=== PATIENT | male | born 1960 | race Caucasian/White ===

== ENCOUNTER 2020-04-26 13:32 | Emergency (ER) | payer BC, SELFPAY ==
[2020-04-26 13:45] VITALS: BP 137/93; PULSE 87; RESP 20; TEMP 37; O2SAT 97
--- NOTE | 2020-04-26 13:53 | ED.NECK ---
HPI - Neck Pain/Injury General Chief Complaint: Unspecified Stated Complaint: R hip pain, pain in L arm and neck Time Seen by Provider: 04/26/20 13:35 Source: patient and RN notes reviewed Mode of arrival: ambulatory Limitations: no limitations History of Present Illness HPI Narrative: patient states that he takes 05/03/2025 [place] 1 p.o. b.i.d. on a regular basis. He sees a pain management clinic. He has been slowly weaned down from 4 tabs per day. He had a prescription supposedly called in for him on Tuesday but it was not at the pharmacy. He has not been able to work for the last 2 days due to the pain. He just needs a few medications to get him through till Tuesday. MD complaint: neck pain and other ( Chronic hip pain and left arm pain) Onset (ago): day(s) (2) Related Data Home Medications Medication Instructions Recorded Confirmed alprazolam 0.5 mg PO BID 04/26/20 04/26/20 atorvastatin 80 mg PO DAILY 04/26/20 04/26/20 hydrocodone-acetaminophen 1 tablet PO BID 04/26/20 04/26/20 metoprolol succinate [Toprol XL] 50 mg PO DAILY 04/26/20 04/26/20 Allergies Allergy/AdvReac Type Severity Reaction Status Date / Time cephalexin Allergy Unknown Verified 01/02/19 11:51 Review of Systems Review of Systems: All systems reviewed & are unremarkable except as noted in HPI and below PMFSH Past Medical History Medical History (Updated 04/26/20 @ 14:16 by Marcelino Smith MD) Anxiety Hyperlipidemia Surgical History Surgical History (Updated 04/26/20 @ 14:11 by Marcelino Smith MD) H/O neck surgery Family History Family History Other Diabetes mellitus Family history of arthritis Family history of malignant neoplasm Hypertension Social History Social History Smoking status: Never smoker Exam Const: General: healthy appearing, no acute distress and alert Nutritional Appearance: well nourished Orientation/consciousness: patient oriented x3 HENMT: Head: normal to inspection Ears: external ears normal Eyes: Conjunctivae: conjunctivae normal Pupils: Equal, round and reactive pupils present EOM: EOMs intact bilaterally Neck: Neck: normal visual inspection Resp: Effort & Inspection: normal respiratory effort Auscultation: clear to auscultation bilaterally Cardio: Rate: regular rate Rhythm: regular rhythm GI: GI Palp: Yes Soft to palpation Auscultation: normal bowel sounds Back/Spine/Pelvis: Cervical Spine: Cervical spine tenderness (left neck) Skin: General skin exam: normal color Rashes: no rashes Neuro: General: patient oriented x3 and moves all extremities Extrem: General: normal to inspection and no clubbing, cyanosis or edema Left upper extremity: shoulder/upper arm tenderness of the proximal humerus Psych: Appearance: grossly normal and well kempt Mental Status: mental status grossly normal Affect: normal affect Attitude: cooperative Thought content: Yes Normal thought content present Course Course Emergency Course: I told the patient because he has seen a pain clinic I can only give him enough medication for up to 3 days. I did check the [place] [employer] and he is consistent with his medications he only sees 1 doctor and he is getting them in a timely manner. Vital Signs Vital signs: Vital Signs Temperature 37.0 C 04/26/20 13:45 Pulse Rate 87 04/26/20 13:45 Respiratory Rate 04/26/20 13:45 Blood Pressure 137/93 H 04/26/20 13:45 Pulse Oximetry 97 04/26/20 13:45 Temperature 37.0 C 04/26/20 13:45 Pulse Rate 87 04/26/20 13:45 Respiratory Rate 04/26/20 13:45 Blood Pressure 137/93 H 04/26/20 13:45 Pulse Oximetry 97 04/26/20 13:45 Discharge Plan Discharge Clinical Impression: Chronic neck pain Patient Disposition: Home, Self-Care Condition: Stable Instructions: Chronic Neck Pain (DC) Prescriptions: New hydrocodone-acetamin
== END 2020-04-26 14:21 | disposition home or self-care (01) ==
PROVIDERS: Emergency Provider Emergency Medicine; PCP Family Medicine
DX: M54.2 Cervicalgia (principal)
CPT/HCPCS: 99281; 99283

== ENCOUNTER 2020-09-03 10:19 | Outpatient (CLI) | payer BC, SELFPAY ==
--- NOTE | ~2020-09-03 | CT_ITS ---
EXAMINATION:CT lung screening DATE: 09/03/2020 10:38 INDICATION: Personal history of tobacco dependence. Current smoker with 30 pack year history. TECHNIQUE: Computed tomography (CT) of the chest was performed without intravenous contrast. Automate d exposure control and iterative reconstruction technique were employed. The dose-length product (DLP ) was 211.06 mGy-cm. COMPARISON: Chest CT 11/01/18 FINDINGS: There is mild emphysema. There are innumerable chronic 1 mm centrilobular nodules in the up per lungs, likely respiratory bronchiolitis. No pleural effusion. The heart size is normal. There are coronary artery calcifications. No pericardial effusion. There are old healed right rib fractures. T here is mild thoracic spondylosis. IMPRESSION: 1. Lung-RADS category 2: Benign appearance or behavior. Continue annual screening with noncontrast lo w-dose chest CT in 12 months. Reviewed, dictated and finalized at location [facility]. [employer] IMPRESSION: 1. Lung-RADS category 2: Benign appearance or behavior. Continue annual screeni ng with noncontrast low-dose chest CT in 12 months.
== END 2020-09-03 10:20 | disposition home or self-care (01) ==
LOC: CHSIMG 10:20
PROVIDERS: PCP Family Medicine; Visit Provider Family Medicine
DX: Z12.2 Encounter for screening for malignant neoplasm of respiratory organs (principal); Z87.891 Personal history of nicotine dependence
CPT/HCPCS: 71271

== ENCOUNTER 2020-09-10 12:29 | Outpatient (CLI) | payer BC, SELFPAY ==
--- NOTE | ~2020-09-10 | XR_ITS ---
XR lg joint inject/asp w image DATE: 09/10/2020 14:51 INDICATION: Right hip pain TECHNIQUE: The purpose of the procedure, technique and potential complications were discussed with th e patient. The patient verbalized understanding and gave oral and written consent. The skin over the anterolateral aspect of the proximal right thigh was prepared with sterile Betadine . Local anesthetic was administered to the skin and underlying subcutaneous tissues. A 20-gauge spinal needle was introduced into the right hip joint space using fluoroscopy for guidance . Contrast material injection confirmed intra-articular position of the needle tip. Subsequently, 80 mg of Depo-Medrol and 2 cc of 0.5% Marcaine was injected into the right hip joint space. Patient was very cooperative and tolerated the procedure without complaint or apparent complication. IMPRESSION: Fluoroscopically guided intra-articular injection of 80 mg of Depo-Medrol and 2 cc of 0.5 % Marcaine Reviewed, dictated and finalized at [facility]. Reviewed, dictated and finalized at location [facility]. [employer] IMPRESSION: Fluoroscopically guided intra-articular injection of 80 mg of Depo- Medrol and 2 cc of 0.5% Marcaine
== END 2020-09-10 12:30 | disposition home or self-care (01) ==
LOC: CHSIMG 12:30
PROVIDERS: PCP Family Medicine; Visit Provider Orthopaedic Surgery
DX: M16.11 Unilateral primary osteoarthritis, right hip (principal)
CPT/HCPCS: 20610; 77002; J1030; Q9965

== ENCOUNTER 2021-12-29 14:50 | Emergency (ER) | payer BC, SELFPAY ==
--- NOTE | ~2021-12-29 | CT_ITS ---
EXAMINATION: CT lumbar spine wo con DATE: 12/29/2021 15:31 INDICATION: Left-sided low back pain. TECHNIQUE: Computed tomography (CT) of the lumbar spine was performed without intravenous contrast. A utomated exposure control and iterative reconstruction technique were employed. The dose-length produ ct was 512.90 mGy-cm. COMPARISON: None FINDINGS: There is 6 degrees levocurvature of lumbar spine. Vertebral body heights are normal. There is mildly decreased disc height from L2-L3 through L4-L5. The following disc levels are specifically discussed: L1-L2: The disc does not extend beyond the endplate margin. There is mild bilateral facet joint osteo arthritis. There is no neural foraminal stenosis. There is no central canal stenosis. L2-L3: The disc is bulging. There is mild right and severe left facet joint osteoarthritis. There is mild bilateral neural foraminal stenosis. There is mild central canal stenosis. L3-L4: The disc is bulging. There is moderate right and severe left facet joint osteoarthritis. There is moderate bilateral neural foraminal stenosis. There is mild central canal stenosis. L4-L5: The disc is bulging. There is moderate bilateral facet joint osteoarthritis. There is moderate bilateral neural foraminal stenosis. There is mild central canal stenosis. L5-S1: The disc is bulging. There is moderate right and severe left facet joint osteoarthritis. There is mild bilateral neural foraminal stenosis. There is mild central canal stenosis. IMPRESSION: 1. Moderate lumbar spondylosis. Reviewed, dictated and finalized at location A.
[2021-12-29 14:55] VITALS: BP 124/81; PULSE 81; RESP 18; TEMP 36.9; O2SAT 97
--- NOTE | 2021-12-29 15:04 | ED.BACK ---
HPI - Back Pain/Injury General Chief Complaint: Back Pain/Injury Stated Complaint: back pain Time Seen by Provider: 12/29/21 15:04 Source: patient History of Present Illness HPI Narrative: 61-year-old male with chronic hip pain, chronic low back pain on [place] and under pain management therapy presents to the ER with -- left lower back pain radiating to his hip/ thigh for past 4 days. no sensory motor loss. No bladder or bowel involvement. No fever. no recent trauma MD elicited complaint: back pain Pertinent past history: prior back pain Onset (ago): day(s) ( started 4 days ago) Timing: constant Severity: moderate Similar Symptoms Previously: No Quality: aching Location: lumbar spine Radiation: other ( radiates to his left thigh) Exacerbating factors: movement Relieving factors: immobilization Associated symptoms: denies other symptoms and loss of sensation in lower extremities ( Chronic paresthesias of right lower extremity) Treatments prior to arrival: prescription analgesics Related Data Home Medications Medication Instructions Recorded Confirmed atorvastatin 80 mg tablet 80 mg PO DAILY 04/26/20 12/29/21 metoprolol succinate 50 mg 50 mg PO DAILY 04/26/20 12/29/21 tablet,extended release 24 hr (Toprol XL) lisinopril 20 1 tablet PO DAILY 10/13/20 12/29/21 mg-hydrochlorothiazide 12.5 mg tablet Allergies Allergy/AdvReac Type Severity Reaction Status Date / Time cephalexin Allergy Unknown Hives Verified 12/29/21 15:02 Review of Systems Review of Systems: All systems reviewed & are unremarkable except as noted in HPI and below Constitutional: Constitutional: Reports as per HPI and Reports no additional constitutional complaints Eyes: Eyes: Reports as per HPI and Reports no additional eye complaints ENT: Reports system reviewed and no additional complaints, except as documented and Reports as per HPI Cardiovascular: Cardiovascular: Reports as per HPI and Reports no additional cardiovascular complaints Respiratory: Respiratory: Reports chest congestion and Reports cough Gastrointestinal: Gastrointestinal: Reports as per HPI and Reports no additional gastrointestinal complaints Genitourinary: Genitourinary: Reports no additional male genitourinary complaints and Reports as per HPI Musculoskeletal: Comments: chronic hip pain for which he takes [place] Integumentary/Breasts: Skin/Breast: Reports system reviewed and no additional complaints, except as docu and Reports as per HPI Neurologic: Reports system reviewed and no additional complaints, except as documented and Reports as per HPI Psychiatric: Psychiatric: Reports no additional psychiatric complaints and Reports as per HPI Endocrine: Endocrine: Reports no additional endocrine complaints and Reports as per HPI Hematologic/Lymphatic: Hematologic/Lymphatic: Reports no additional hematologic/lymphatic complaints and Reports as per HPI Allergic/Immunologic: Allergic/Immunologic: Reports no additional allergic/immunologic complaints and Reports as per HPI [facility] Past Medical History Medical History (Updated 12/29/21 @ 15:54 by Gurvinder Chowdhury MD) Anxiety Asthma Chronic pain COPD (chronic obstructive pulmonary disease) Coronary artery disease Hyperlipidemia Osteoarthritis Surgical History Surgical History H/O neck surgery History of appendectomy History of colonoscopy History of surgery on wrist Family History Family History Other Diabetes mellitus Family history of arthritis Family history of malignant neoplasm Hypertension Social History Social History Smoking packs per day: 0.5 Smoking cigarettes per day: 10.0 Years smoked: 30 Smoking pack-years: 15.00 Smoking status: Current every day smoker Alcohol intake: current Exam Const: G
[2021-12-29 15:43] LABS: Add Urine Microscopic? YES; Appearance Urine Clear (Clear); Bilirubin Urine Negative (Negative); Blood Urine 2+ (Negative); Color Urine Light Yellow (Yellow); Glucose Urine UA Negative (Negative); Ketones Urine Negative (Negative); Leukocyte Esterase Ur Negative (Negative); Nitrate Urine Negative (Negative); Protein Urine Negative (Negative); Urobilinogen Urine 0.2 mg/dL (0.2-1.0); pH Urine 5.5 (5.0-8.0)
[2021-12-29 15:58] LABS: Bacteria Urine Trace /hpf; Squamous Epithelial Cell Urine Rare /hpf (Few); WBC Urine None seen /hpf (0-3)
[2021-12-29 15:59] LABS: Mucus Urine Few /lpf
[2021-12-29] MEDS: KETOROLAC 30 MG/ML VIAL (*BKC) IM (16:06)
[2021-12-29 16:10] VITALS: BP 130/66; PULSE 74; RESP 16; TEMP 36.2; O2SAT 97
== END 2021-12-29 16:13 | disposition home or self-care (01) ==
PROVIDERS: Emergency Provider Internal Medicine Critical Care Medicine; PCP Family Medicine
DX: M47.816 Spondylosis without myelopathy or radiculopathy, lumbar region (principal)
CPT/HCPCS: 72131; 81001; 96372; 99284; J1885

== ENCOUNTER 2022-12-10 13:09 | Outpatient (CLI) | payer BC, SELFPAY ==
--- NOTE | ~2022-12-10 | CT_ITS ---
CT Scan of the Chest without Contrast: Clinical Indication: Lung cancer screening, personal history of nicotine dependence Technique: Contiguous sections were acquired throughout the chest without intravenous contrast. Dose reduction technique was used on this scan by utilizing automated exposure control and iterative recon struction technique. The dose-length product (DLP) was 153.45 mGy-cm. COMPARISON: 09/03/2020 Findings: There is no evidence of any significant mediastinal, hilar or axillary lymphadenopathy. Coronary latanya ry calcium cages are present. There is no evidence of pleural or pericardial effusion. The lungs are clear. No pulmonary nodules or infiltrates are noted. Images through the upper abdomen reveal no abnormalities. Impression: Lung RADS 1: Negative. 12 month follow-up screening CT advised. Reviewed, dictated and finalized at location . Impression: Lung RADS 1: Negative. 12 month follow-up screening CT advised.
== END 2022-12-10 13:10 | disposition home or self-care (01) ==
LOC: CHSIMG 13:13
PROVIDERS: PCP Family Medicine; Visit Provider Family Medicine
DX: Z12.2 Encounter for screening for malignant neoplasm of respiratory organs (principal); Z87.891 Personal history of nicotine dependence
CPT/HCPCS: 71271

== ENCOUNTER 2024-09-17 15:54 | Emergency (ER) | payer MEDICARE, SELFPAY ==
[2024-09-17 15:54] VITALS: BP 138/72; PULSE 84; RESP 18; TEMP 36.8; O2SAT 94
--- NOTE | 2024-09-17 17:10 | ED.EAR ---
HPI - Ear Problem General Chief complaint: Ear Stated complaint: ear pain Time Seen by Provider: 09/17/24 16:20 Source: patient Mode of arrival: ambulatory Limitations: no limitations History of Present Illness HPI Narrative: Patient is 64-year-old male with significant past medical history presents today with ear problems. Patient has ear pain is bilateral ears and says he thinks he is also wax buildup in both his ears as well. They both hurt equally. He says he has had this problem before is wax buildup. He says he tries not to the Q-tips but uses tip of his finger. MD Complaint: ear pain Location: bilateral Duration: constant Severity: mild Relieving factors: nothing Exacerbating factors: nothing Discharge from ear: Reports yes - purulent Associated symptoms ear: decreased hearing Treatment prior to arrival: eardrops Related Data Home Medications ?Medication ?Instructions ?Recorded ?Confirmed ?Last Taken ?Type atorvastatin 80 mg tablet 80 mg PO DAILY 04/26/20 12/29/21 Unknown History metoprolol succinate 50 mg 50 mg PO DAILY 04/26/20 12/29/21 Unknown History tablet,extended release 24 hr (Toprol XL) lisinopril 20 1 tablet PO DAILY 10/13/20 12/29/21 Unknown History mg-hydrochlorothiazide 12.5 mg tablet Allergies Allergy/AdvReac Type Severity Reaction Status Date / Time cephalexin Allergy Unknown Hives Verified 09/17/24 17:09 Review of Systems Review of Systems: All systems reviewed & are unremarkable except as noted in HPI and below Constitutional: Constitutional: Reports as per HPI Eyes: Eyes: Reports no additional eye complaints ENT: Reports as per HPI Comments: ear impacted cerumen Cardiovascular: Cardiovascular: Reports no additional cardiovascular complaints Respiratory: Respiratory: Reports no additional respiratory complaints Gastrointestinal: Gastrointestinal: Reports no additional gastrointestinal complaints Genitourinary: Genitourinary: Reports no additional male genitourinary complaints Musculoskeletal: Musculoskeletal: Reports no additional musculoskeletal complaints Integumentary/Breasts: Skin/Breast: Reports system reviewed and no additional complaints, except as docu Neurologic: Reports system reviewed and no additional complaints, except as documented Psychiatric: Psychiatric: Reports no additional psychiatric complaints Endocrine: Endocrine: Reports no additional endocrine complaints Hematologic/Lymphatic: Hematologic/Lymphatic: Reports no additional hematologic/lymphatic complaints Allergic/Immunologic: Allergic/Immunologic: Reports no additional allergic/immunologic complaints [facility] Past Medical History Medical History Osteoarthritis Chronic pain Asthma COPD (chronic obstructive pulmonary disease) Coronary artery disease Anxiety Hyperlipidemia Surgical History Surgical History History of surgery on wrist History of appendectomy History of colonoscopy H/O neck surgery Family History Family History Other Diabetes mellitus Family history of arthritis Family history of malignant neoplasm Hypertension Social History Social History Smoking packs per day: 0.5 Smoking cigarettes per day: 10.0 Years smoked: 30 Smoking pack-years: 15.00 Smoking status: Current every day smoker Alcohol intake: current Exam Const: General: healthy appearing Nutritional Appearance: well nourished Orientation/consciousness: patient oriented x3 HENMT: Head: normal to inspection Ears: external ears normal, Abnormal EAC present and TM abnormal Face/Nose/Sinus: Normal external nose present Face and sinus: normal facial exam Mouth: Yes Normal oral and palatal mucosa present Eyes: Conjunctivae: conjunctivae normal Pupils: Equal, round and reactive pupils present EOM: EOMs intact bilaterally Neck: Neck: normal visual inspection Chest: Chest palpation & inspection: normal inspection of the chest Resp: Effort & Inspection: normal respiratory effort Auscultation: clear to auscultation bilaterally Cardio: Rate: regular rate Rhythm: regular rhythm GI: GI Palp: Yes Soft to palpation Back/Spine/Pelvis: Back: no CVA tenderness Skin: General skin exam: normal color Rashes: no rashes Wounds: no wounds Neuro: General: patient oriented x3 Cranial nerves: Yes Nystagmus not present Speech: normal speech Extrem: General: normal to inspection Psych: Mental Status: mental status grossly normal Affect: normal affect Attitude: cooperative Course Vital Signs Vital signs: Vital Signs Temperature 98.3 F 09/17/24 15:54 Pulse Rate 84 09/17/24 15:54 Respiratory Rate 18 09/17/24 15:54 Blood Pressure 138/72 09/17/24 15:54 Pulse Oximetry 94 09/17/24 15:54 Oxygen Delivery Room Air 09/17/24 15:54 Temperature 98.3 F 09/17/24 15:54 Pulse Rate 84 09/17/24 15:54 Respiratory Rate 18 09/17/24 15:54 Blood Pressure 138/72 09/17/24 15:54 Pulse Oximetry 94 09/17/24 15:54 Oxygen Delivery Room Air 09/17/24 15:54 Medical Decision Making MDM Narrative Medical decision making narrative: patient has impacted cerumen on both ears they are completely impacted except for the right ear I can see enough to see that he does have a right ear infection. Will order an ear irrigation to both ears. After seeing a irrigation to both ears the left ear also has an ear infection as well. For Ciprodex for both ears and Augmentin for the ear infections. Differential Diagnosis Differential Diagnosis: Bilateral otitis media Medical Records Medical records reviewed: Yes I reviewed the external patient's medical records. Vital Signs Vital Signs: Vital Signs Temperature 98.3 F 09/17/24 15:54 Pulse Rate 84 09/17/24 15:54 Respiratory Rate 18 09/17/24 15:54 Blood Pressure 138/72 09/17/24 15:54 Pulse Oximetry 94 09/17/24 15:54 Oxygen Delivery Room Air 09/17/24 15:54 Temperature 98.3 F 09/17/24 15:54 Pulse Rate 84 09/17/24 15:54 Respiratory Rate 18 09/17/24 15:54 Blood Pressure 138/72 09/17/24 15:54 Pulse Oximetry 94 09/17/24 15:54 Oxygen Delivery Room Air 09/17/24 15:54 Lab Data Lab results reviewed: Yes I reviewed the patient's lab results. Discharge Plan Discharge Clinical Impression: Otitis media, Cerumen impaction Patient Disposition: Home, Self-Care Condition: Stable Instructions: Antibiotic Form, Ear Infection (ED) Additional Instructions: take ear drops as prescribed. Take all med as prescribed as well. Drink plenty of fluids and stay well hydrated. Follow-up with ENT doctor. Patient Language: Arabic Prescriptions: New ciprofloxacin-dexamethasone 0.3-0.1 % drops,suspension 4 drp EACH EAR Q12H 7 Days Qty: 7.5 0RF amoxicillin-pot clavulanate 875-125 mg tablet 1 tablet PO Q12H Qty: 20 0RF No Action atorvastatin 80 mg tablet 80 mg PO DAILY metoprolol succinate [Toprol XL] 50 mg tablet extended release 24 hr 50 mg PO DAILY hydrocodone-acetaminophen [[place]] 5-325 mg tablet 1 tablet PO Q8H PRN (Reason: pain) Qty: 12 0RF meloxicam 15 mg tablet 15 mg PO DAILY Qty: 10 0RF lisinopril-hydrochlorothiazide 20-12.5 mg tablet 1 tablet PO DAILY Follow-up/Referrals: Axel Lorenzana MD [Primary Care Provider] - Time of Disposition: 17:19
[2024-09-17 17:16] VITALS: BP 126/77; PULSE 82; RESP 16; TEMP 36.6; O2SAT 93
--- OUTSIDE RECORDS SUMMARY | 2024-09-17 18:16 | XMS_ITS | Clinical Summary ---
Author Organization [facility] Address [address] [place] [id number] Care Team Providers Care Patient Access Specialist Name Role Phone Unavailable Primary Care Provider Unavailabl e Social History Tobacco Use Types Packs/Day Years Used Date Smoking Tobacco: Never Assessed Sex and Gender Information Value Date Recorded Sex Assigned at Not on file Legal Sex Male 5:56 PM [employer] Gender Identity Not on file Sexual Orientation Not on file Plan of Treatment Health Maintenance Due Date Last Done Comments Colorectal Cancer Screening Colonoscopy (10 Years) 1959 Annual Physical 1962 Hepatitis C 1977 DTaP, Tdap and Td Vaccines ( 1 - Tdap) 1978 Zoster Vaccines (1 of 2) 2009 COVID-19 Vaccine (2023-2 5 season) 2024 Influenza Adult (#1) 2024 RSV Immunization or 60+ Years (1 - 1-dose 75+ series) 2034 Meningococcal B Vaccine Aged Out No l onger eligible based on patient's age to complete this topic Meningococcal Vaccine Aged Out No preeti amy eligible based on patient's age to complete this topic Pneumococcal Vaccine: Pediat rics (0 to 5 Years) and At-Risk Patients (6 to 64 Years) Aged Out No longer eligible b ased on patient's age to complete this topic RSV Immunizations Under 20 Months Aged Out No longer eligible based on patient's age to complete this topic
--- OUTSIDE RECORDS SUMMARY | 2024-09-17 18:16 | XMS_ITS | Encounter Summary ---
Author Organization [facility] Address [address] [place] [id number] Care Team Providers Care Social Sciences Chair Name Role Phone Unavailable Primary Care Provider Unavailabl e Encounter Details Date Type Department Care Team (Late st Contact Info) Description 01/06/2019 Abstract SFL CONVERSION [address] [place] [address] , Generic Conversion, Social History Tobacco Use Types Packs/Day Years Used Date Smoking Tobacco: Never Assessed Sex and Gender Information Value Date Recorded Sex Assigned at Not on file Legal Sex Male 5:56 PM WARD [employer] Gender Identity Not on file Sexual Orientation Not on file documented as of this encounter Plan of Treatment Not on file documented as of this encounter Visit Diagnoses Not on filedocumented in this encounter
== END 2024-09-17 17:25 | disposition home or self-care (01) ==
PROVIDERS: Emergency Provider Family Medicine; PCP Family Medicine
DX: H66.93 Otitis media, unspecified, bilateral (principal); H61.23 Impacted cerumen, bilateral; F17.210 Nicotine dependence, cigarettes, uncomplicated
CPT/HCPCS: 99283